=== PATIENT | female | born 1990 | race Caucasian/White ===

== ENCOUNTER 2018-04-08 20:19 | Emergency (ER) | payer OTHER ==
[~2018-04-08] VITALS: Ht 162.6 cm; Wt 52.2 kg
[2018-04-08] MEDS ORDERED: IBUPROFEN 400400 M2 PO (20:25)
[2018-04-08] MEDS ORDERED: IBU800 MG PO (21:49)
[2018-04-08 21:56] VITALS: BP 133/93
== END 2018-04-08 21:56 | disposition home or self-care (01) ==
LOC: M.ERS 20:19
DX: S63.641A Sprain of metacarpophalangeal joint of right thumb, initial encounter (principal); S69.92XA Unspecified injury of left wrist, hand and finger(s), initial encounter; F17.210 Nicotine dependence, cigarettes, uncomplicated; Z88.0 Allergy status to penicillin; W18.39XA Other fall on same level, initial encounter; Y93.89 Activity, other specified; Y92.89 Other specified places as the place of occurrence of the external cause; Y99.8 Other external cause status

== ENCOUNTER 2018-09-30 21:36 | Emergency (ER) | payer OTHER ==
[~2018-09-30] VITALS: Ht 162.6 cm; Wt 58.1 kg
[~2018-09-30 21:36] MED LIST: IBU800 MG PO; IBUPROFEN 400400 M2 PO
[2018-09-30] MEDS ORDERED: IBUPROFEN 800800 M1 PO (21:49)
[2018-09-30 22:52] LABS: ABSOLUTE BASOPHILS 0.1 thou/uL (0.0-0.2); ABSOLUTE EOSINOPHILS 0.2 thou/uL (0.0-0.7); ABSOLUTE LYMPHOCYTES 2.2 thou/uL (0.8-5.3); ABSOLUTE MONOCYTES 0.5 thou/uL (0.0-1.2); ABSOLUTE NEUTROPHILS 3.9 thou/uL (1.6-8.1); BASOPHILS 1.4 %; EOSINOPHILS 2.3 %; HEMATOCRIT 39.3 % (37.0-47.0); HEMOGLOBIN 13.4 gm/dL (12.0-15.0); LYMPHOCYTES 31.4 %; MCH 30.2 pg (26.0-34.0); MCHC 34.1 g/dL (28.0-37.0); MCV 88.5 fL (80.0-100.0); MONOCYTES 7.8 %; MPV 8.8 fl. (7.2-11.1); NUCLEATED RBCS 0 /100WBC; PLATELET COUNT* 248 thou/uL (150-400); POLYS 57.1 %; RBC 4.43 mil/uL (4.20-5.00); WBC 6.9 thou/uL (4.0-11.0)
[2018-09-30 22:58] LABS: CALCIUM 8.8 mg/dL (8.5-10.1); CREATININE 0.8 mg/dL (0.6-1.3); POTASSIUM 3.5 mmol/L (3.5-5.1)
[2018-09-30] MEDS ORDERED: NORCO 5-325 TA1 EACH PO (23:10)
[2018-09-30] MEDS ORDERED: KEFLEX500 M1 PO (23:10)
[2018-09-30] MEDS ORDERED: NABUMETONE 750750 M1 PO (23:10)
[2018-09-30 23:30] VITALS: BP 121/61
== END 2018-09-30 23:30 | disposition home or self-care (01) ==
LOC: M.ERS 21:36
PROVIDERS: Nurse Practitioner Family
DX: S91.311A Laceration without foreign body, right foot, initial encounter (principal); F17.210 Nicotine dependence, cigarettes, uncomplicated; Z88.0 Allergy status to penicillin; W22.8XXA Striking against or struck by other objects, initial encounter; Y93.89 Activity, other specified; Y92.89 Other specified places as the place of occurrence of the external cause; Y99.8 Other external cause status